=== PATIENT | male | born 1945 | race Caucasian/White ===

== ENCOUNTER 2017-11-14 14:08 | Inpatient (IN) ==
[2017-11-14] MEDS ORDERED: ACETAMINOPHEN 325 MG TABLET PO PRN (15:04)
[2017-11-14] MEDS ORDERED: oxyCODONE HCL 5 MG TABLET PO PRN (15:04)
[2017-11-14] MEDS ORDERED: MAGNESIUM HYDROXIDE 30 ML ORAL.SUSP PO PRN (15:06)
[2017-11-14] MEDS ORDERED: ACETAMINOPHEN (PP) 325MG TABLET (#50) PO PRN (15:06)
[2017-11-14] MEDS ORDERED: DEXTROSE 31 GM ORAL.SUSP PO PRN (15:08)
[2017-11-14] MEDS ORDERED: DEXTROSE 50% 50 ML VIAL IV PRN (15:08)
[2017-11-14] MEDS ORDERED: PIPERACILLIN SODIUM/TAZOBACTAM 2.25 GM VIAL IV SCH (15:15)
[2017-11-14] MEDS: INSULIN LISPRO 1 UNIT/0.01 ML UNIT SQ SCH ×2 (17:15→21:43)
[2017-11-14] MEDS ORDERED: GENTAMICIN SULFATE 80 MG/2 ML VIAL IRR SCH (21:00)
[2017-11-14] MEDS ORDERED: DOCUSATE SODIUM 100 MG CAPSULE PO SCH (21:00)
[2017-11-14] MEDS ORDERED: BACITRACIN 50,000 UNIT VIAL IRR SCH (21:00)
[2017-11-14] MEDS ORDERED: CLINDAMYCIN 600 MG/4 ML VIAL IRR SCH (21:00)
[2017-11-14] MEDS: HEPARIN 5,000 UNIT/ML VIAL SQ SCH (21:43)
[2017-11-14] MEDS: INSULIN GLARGINE, HUMAN 1 UNIT/0.01 ML SQ SCH (21:44)
[2017-11-14] MEDS: 0.9 % SODIUM CHLORIDE 10 ML SYRINGE IV SCH (21:44)
[2017-11-14] MEDS: TAMSULOSIN 0.4 MG CAPSULE PO SCH (21:44)
[2017-11-14] MEDS: GENTAMICIN SULFATE 40 MG, CLINDAMYCIN 300 MG, BACITRACIN 25,000 UNIT in SODIUM CHLORIDE... IRR SCH (21:45)
[2017-11-14] MEDS: PIPERACILLIN SODIUM/TAZOBACTAM 2.25 GM in DEXTROSE 5% IN WATER 50 ML IV SCH (22:14)
[2017-11-15] MEDS: PIPERACILLIN SODIUM/TAZOBACTAM 2.25 GM in DEXTROSE 5% IN WATER 50 ML IV SCH ×3 (05:44→21:49)
[2017-11-15] MEDS: 0.9 % SODIUM CHLORIDE 10 ML SYRINGE IV SCH ×3 (05:44→21:35)
[2017-11-15] MEDS: POLYETHYLENE GLYCOL 3350 17 GM PACKET PO SCH (08:52)
[2017-11-15] MEDS: HEPARIN 5,000 UNIT/ML VIAL SQ SCH (08:52)
[2017-11-15] MEDS: INSULIN LISPRO 1 UNIT/0.01 ML UNIT SQ SCH ×4 (08:53→21:35)
[2017-11-15] MEDS: FUROSEMIDE 40 MG TABLET PO SCH (08:53)
[2017-11-15] MEDS: LACTOBACILLUS 1 CAPSULE PO SCH (08:53)
[2017-11-15] MEDS: LORazepam 1 MG TABLET PO PRN (08:53)
[2017-11-15] MEDS: SIMVASTATIN 20 MG TABLET PO SCH (08:53)
[2017-11-15] MEDS: METOPROLOL SUCCINATE 50 MG TAB.XL.24H PO SCH (08:53)
[2017-11-15] MEDS: GENTAMICIN SULFATE 40 MG, CLINDAMYCIN 300 MG, BACITRACIN 25,000 UNIT in SODIUM CHLORIDE... IRR SCH ×2 (08:53→21:35)
[2017-11-15] MEDS: ALLOPURINOL 300 MG TABLET PO SCH (08:53)
[2017-11-15] MEDS: INSULIN GLARGINE, HUMAN 1 UNIT/0.01 ML SQ SCH ×2 (08:54→21:35)
--- NOTE | 2017-11-15 20:53 | Internal Med History&Physical ---
Medical - H&P: HPI Patient information: Note initiated : 11/15/17 at 8:51 pm Service Date, if different from initiated Date: [] Patient: Jamel Auguste a 72 y/o M admitted on 11/14/17 for Rt Foot Infection, Diabetic Wound . Chief Complaint: [] History of present illness: Mr. Auguste is a 72 year old Male with h/o diabetid foot wound failed outpatient admitted to the hospital intially for management with iv abx and hbot treatment patient was treated with improvement in his symptoms, he still needs IV abx to complete 10 -14 days of iv abx, he needs rehab and continued hbot treatment he is being admitted under swing bed status for same see below the discharge summary from previous visit. Mr. Auguste is a 72 year old M with DM, cardiomyopathy and CKD, who presented for inpatient care of a R foot plantar infected non-healing ulcer. He has been closely followed in the wound clinic by dr Cantrell. States that the foot ulcer developed about 6 - 8 weeks ago, and thinks that the infection started two weeks ago. He was seen in ED on 11/03 and started on Bactrim with instruction to FU with wound clinic. He denies pain, or drainage, fever or chills. History of DB > 20 years. No podiatric care. He has an extensive cardiac history, diagnosed with severe cardiomyopathy and vbaqmmmo-kq-gdthfx MR, S/P pacemaker placement, and hx of urinary retention with subsequent hydronephrosis. Patient is resident of [facility]. R plantar foot ulcer with soft tissue infection and some necrosis, possible osteomyelitis. Treatment as per Dr Hernandez and Dr Page : Vancomycin, Zosyn, local wound care, hyperbaric O2, Today is day 7 of antibiotics, patient will need atleast 10 -14 days of IV antibiotics and then can be switched to oral Augmentin. He has received 6 days of HBOT and will need another 14 treatments of HBOT, his first utilization review will be at day [address] of [address]OT Xray and CT of the food was negative for osteomyelitis he is weak from his treatments and needs ongoing rehab with physical therapy and occupational therapy. The patient is hemodynamically stable and does not need to be under inpatient status. Will be discharged to swing be status. The patient had te on ckd with hydronephrosis on his single kidney, was treated with flomax, his repeat usg showed resolution of his hydronephrosis. Bladder scan done also showed PVR of 76-100 cc. TE and CKD followed by Dr Haines from nephrology while inpatient, creat improved , patient dose of lasix cut from 40 bid to 40 once daily, no e/o edema in the local wound. 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 - Constitutional Constitutional: Absent: chills, fatigue, fever(s) - EENT Eyes: Absent: blurry vision Nose, mouth and throat: Absent: disequilibrium, dizziness - Cardiovascular Cardiovascular: Absent: chest pain, dyspnea on exertion, palpatations - Respiratory Respiratory: Absent: cough, dyspnea on exertion - Gastrointestinal Gastrointestinal: Absent: abdominal pain, nausea, vomiting - Genitourinary Genitourinary: Absent: urinary hesitancy, urinary incontinence, urinary urgency - Neurological Neurological: Absent: disequilibrium, dizziness, focal weakness - Psychiatric Psychiatric: Present: anxiety Medical - H&P: PMH Medical history: Medical History Hyperglycemia due to type 2 diabetes mellitus (Acute) Costalchondritis (Acute) Hyperkalemia (Acute) Hyperkalemia, diminished renal excretion (Acute) Abscess of skin or subcutaneous tissue (Acute) Pleural effusion (Acute) Pulmonary edema (Acute) Pleural effusion due to CHF (congestive heart failure) (Acute) Chronic anemia (Acute) CHF exacerbation (Acute) Urge incontinence (Chronic 09/07/14) Bladder trabeculation (Chronic 12/11/14) Thrombocythemia, essential (Chronic) Splenomegaly (Chronic) Incomplete bladder emptying (Chronic 09/07/14) Hydronephrosis (Chronic) Congestive heart failure (Chronic) Surgical history: Past Surgical History History of knee surgery (Chronic) Pertinent family history: Family History Mother Family history of malignant neoplasm Medical - H&P: Meds Home Medications Medication Instructions Recorded Confirmed Type allopurinol 300 mg tablet 300 mg PO QDAY tab 04/22/15 11/14/17 History Lovastatin 1 tab PO DAILY 05/05/16 11/14/17 History Acetaminophen [Non-Aspirin] 650 mg PO Q6HP PRN 11/08/17 11/14/17 History Ergocalciferol (Vitamin D2) 50,000 unit PO MONTHLY 11/08/17 11/14/17 History [Vitamin D2] Insulin Glargine, Human [Lantus] 22 units SQ BID 11/08/17 11/14/17 History Iron Ag/C/B12/Ca/Suc.acid/Stom 1 each PO BID 11/08/17 11/14/17 History [Multigen Caplet] Magnesium Hydroxide [Milk of 30 ml PO HSP PRN 11/08/17 11/14/17 History Magnesia] Metoprolol Succinate [Toprol Xl] 50 mg PO DAILY 11/08/17 11/14/17 History Polyethylene Glycol 3350 [Miralax] 17 gm PO DAILY 11/08/17 11/14/17 History Saccharomyces Boulardii [Florastor] 250 mg PO DAILY 11/08/17 11/14/17 History Tamsulosin HCl [Flomax] 0.4 mg PO HS 11/08/17 11/14/17 History Bacitracin 25,000 unit IRR BID vial 11/14/17 11/14/17 Rx Clindamycin [Cleocin] 300 mg IRR BID vial 11/14/17 11/14/17 Rx Furosemide [Lasix] 40 mg PO DAILY tablet 11/14/17 11/14/17 Rx Gentamicin Sulfate 40 mg IRR BID vial 11/14/17 11/14/17 Rx Piperacillin Sodium/Tazobactam 2.25 gm IV Q8H vial 11/14/17 11/14/17 Rx [Zosyn] Allergies Allergy/AdvReac Type Severity Reaction Status Date / Time No Known Drug Allergies Allergy Verified 11/08/17 09:23 Medical - H&P: Exam - Constitutional Vitals: Temp Pulse Resp BP Pulse Ox 97.5 F 69 18 142/72 99 11/15/17 19:59 11/15/17 19:59 11/15/17 19:59 11/15/17 19:59 11/15/17 19:59 Exam: GENERAL: The patient is a well-developed, well-nourished in no apparent distress. Is alert and oriented x3. VITAL SIGNS: Reviewed and as noted elsewhere. HEENT: Head is normocephalic and atraumatic. Extraocular muscles are intact. Pupils are equal, round, and reactive to light. Nares appeared normal. Mouth appears any without lesions. Mucous membranes are moist. NECK: Normal to inspection, Supple, No lymphadenopathy or thyromegaly. LUNGS: Air entry equal on both sides, no wheezing, crackles or rhonchi noted. No accessory muscles of respiration HEART: Regular rate and rhythm normal, S1 and S2 heard, no Gallop, S3 or Rub Noted, No Gross murmur heard. ABDOMEN: Soft, nontender, and nondistended. Positive bowel sounds. No hepatosplenomegaly was noted. EXTREMITIES: No cyanosis, clubbing, rash, lesions or edema. NEUROLOGIC: Cranial nerves II through XII are grossly intact. Motor and Sensory System Grossly Intact PSYCHIATRIC: Normal affect, Normal Mood. Appropriate Behavior. SKIN: No ulceration or wounds noted, No jaundice, No rash noted. Foot in dressing see wound care notes for details. Medical - H&P: A/P - Narrative A/P Narrative: A/P Narrative: + R plantar foot ulcer with soft tissue infection and some necrosis, possible osteomyelitis. culver grade 3 wound, no e/o osteomyelitis. Treatment as per Dr Cantrell/ Dr Sandhu : Vancomycin, Zosyn, local wound care, hyperbaric O2 as per them. PICC in place, d8 of IV antibiotics microbiology is neg growth so far. wound cx on 11/03 is strep algactate, his has not grown pseudomonas or mrsa, + Peripheral neuropathy + IDDM Continue insulin home regimen. Adjust as indicated to control BS. glucose ok so far, + HTN Continue metoprolol + Cardiomyopathy and bcqmcouu-tm-luquvq MR with hx of CHF and S/P pacemaker placement (?AICD) Continue home meds Lasix (at reduced dose) continued + Acute on chronic renal failure Cr: 2.6. Was 1.9 2 weeks ago and 1.4 in December 201611/10 Dr Haines consulted creat is stable 1.9 at last check + Hx of urinary retention and hydronephrosis Cont Flomax. Watch closely. repeat usg done was neg for hydronephrosis + MRSA colonization not growing in the wound DVT prophylaxis: arixtra Code status: full Social History - Tobacco smoking status: Former smoker - Alcohol alcohol intake frequency: does not drink
[2017-11-15] MEDS: TAMSULOSIN 0.4 MG CAPSULE PO SCH (21:34)
[2017-11-16] MEDS: PIPERACILLIN SODIUM/TAZOBACTAM 2.25 GM in DEXTROSE 5% IN WATER 50 ML IV SCH ×3 (05:38→21:16)
[2017-11-16] MEDS: 0.9 % SODIUM CHLORIDE 10 ML SYRINGE IV SCH ×3 (05:40→21:16)
[2017-11-16] MEDS: METOPROLOL SUCCINATE 50 MG TAB.XL.24H PO SCH (08:08)
[2017-11-16] MEDS: INSULIN LISPRO 1 UNIT/0.01 ML UNIT SQ SCH ×4 (08:09→21:40)
[2017-11-16] MEDS: FUROSEMIDE 40 MG TABLET PO SCH (08:09)
[2017-11-16] MEDS: LACTOBACILLUS 1 CAPSULE PO SCH (08:09)
[2017-11-16] MEDS: ALLOPURINOL 300 MG TABLET PO SCH (08:09)
[2017-11-16] MEDS: SIMVASTATIN 20 MG TABLET PO SCH (08:09)
[2017-11-16] MEDS: FONDAPARINUX SODIUM 2.5 MG/0.5 ML SYRINGE SQ SCH (08:10)
[2017-11-16] MEDS: INSULIN GLARGINE, HUMAN 1 UNIT/0.01 ML SQ SCH ×2 (08:11→21:40)
[2017-11-16] MEDS: LORazepam 1 MG TABLET PO PRN (09:13)
[2017-11-16] MEDS: POLYETHYLENE GLYCOL 3350 17 GM PACKET PO SCH (16:12)
[2017-11-16] MEDS: GENTAMICIN SULFATE 40 MG, CLINDAMYCIN 300 MG, BACITRACIN 25,000 UNIT in SODIUM CHLORIDE... IRR SCH ×2 (16:53→21:39)
--- NOTE | 2017-11-16 16:56 | General Surgery Consult Note ---
History of Present Illness Patient information: Note initiated : 11/16/17 at 4:50 pm Service Date, if different from initiated Date: [] Patient: Jamel Auguste 72 y/o M admitted on 11/14/17 for Rt Foot Infection, Diabetic Wound . Chief Complaint: [] Consult date: 11/16/17 Requesting physician: Jahaira Connor (Wound Care / [facility]) History of present illness: I saw patient with Norm, checked his wound and discussed his progress with nursing staff and Hospitalist Physician blood donor recruiter Dr. Mason. 72 / M Undergoing HBOT, Physical Therapy, IV antibiotics and Local wound Care for resolving CSSSI [place] 3 DFU RIGHT lateral anterir foot on the plantar aspect of 5 th Metatarsal head region. Patient was admitted to acute MedSurg floor bed, but is now changed to Swing bed status, with ongoing continuation of treatment, Physical Therapy and HBOT Medications and Allergies Home Medications Medication Instructions Recorded Confirmed Type allopurinol 300 mg tablet 300 mg PO QDAY tab 04/22/15 11/14/17 History Lovastatin 1 tab PO DAILY 05/05/16 11/14/17 History Acetaminophen [Non-Aspirin] 650 mg PO Q6HP PRN 11/08/17 11/14/17 History Ergocalciferol (Vitamin D2) 50,000 unit PO MONTHLY 11/08/17 11/14/17 History [Vitamin D2] Insulin Glargine, Human [Lantus] 22 units SQ BID 11/08/17 11/14/17 History Iron Ag/C/B12/Ca/Suc.acid/Stom 1 each PO BID 11/08/17 11/14/17 History [Multigen Caplet] Magnesium Hydroxide [Milk of 30 ml PO HSP PRN 11/08/17 11/14/17 History Magnesia] Metoprolol Succinate [Toprol Xl] 50 mg PO DAILY 11/08/17 11/14/17 History Polyethylene Glycol 3350 [Miralax] 17 gm PO DAILY 11/08/17 11/14/17 History Saccharomyces Boulardii [Florastor] 250 mg PO DAILY 11/08/17 11/14/17 History Tamsulosin HCl [Flomax] 0.4 mg PO HS 11/08/17 11/14/17 History Bacitracin 25,000 unit IRR BID vial 11/14/17 11/14/17 Rx Clindamycin [Cleocin] 300 mg IRR BID vial 11/14/17 11/14/17 Rx Furosemide [Lasix] 40 mg PO DAILY tablet 11/14/17 11/14/17 Rx Gentamicin Sulfate 40 mg IRR BID vial 11/14/17 11/14/17 Rx Piperacillin Sodium/Tazobactam 2.25 gm IV Q8H vial 11/14/17 11/14/17 Rx [Zosyn] Allergies Allergy/AdvReac Type Severity Reaction Status Date / Time No Known Drug Allergies Allergy Verified 11/08/17 09:23 Exam Temp Pulse Resp BP Pulse Ox 97.6 F 69 20 142/86 97 11/16/17 06:44 11/15/17 19:59 11/16/17 06:44 11/16/17 06:44 11/16/17 06:44 - General physical appearance well developed, well nourished, no distress, chronically ill - Eyes PERRL, normal ocular movement, other (Pale conjuctiva with Chronic anemia. Muiltifactorial with out symptoms. Stable. ) - ENT normal pinna, normal mucosa, no congestion, decreased hearing - Head Head exam IM: Present: atraumatic, normal inspection, normocephalic - Neck no masses, no bruits, trachea midline, no venous distension - Cardiovascular Cardiovascular exam IM: Present: normal rate and rhythm - Respiratory normal expansion, normal respiratory effort, clear to percussion, clear to auscultation - Abdomen Abdomen: Present: soft, non tender, bowel sounds - Genitourinary Present: other (Diabetes Nephropathy , Acute on Chronic Renal failure, Creatinine stable.) - Integumentary Present: other (DFU [place] 3 Right foot lateral / plantar under 5 th toe head of metatarsal region. Improving. No odor. Granulations noted. ) - Neurologic Present: other (Diabetes with peripheral neuropathy of right foot, ankle . ) - Psychiatric Present: oriented to time, oriented to person, oriented to place, speech is normal Results - Labs All other labs normal. Assessment and Plan (1) Diabetic foot ulcer Status: Acute Priority: Medium Comment: Patietn on combined treatmetn by Local wound care, HBOT, Iv antibiotcs and Physical Therapy for ambulation. Plan: Continue current treatment and wound care. NO HBOT over week end on Sunday and Friday 11/17 and 11/18/2017. Qualifiers: Diabetic foot ulcer location: toe Diabetes mellitus type: type 2 Laterality: right Non-pressure ulcer stage: with fat layer exposed Qualified Code(s): E11.621 - Type 2 diabetes mellitus with foot ulcer; L97.512 - Non-pressure chronic ulcer of other part of right foot with fat layer exposed
[2017-11-16] MEDS: TAMSULOSIN 0.4 MG CAPSULE PO SCH (21:16)
[2017-11-17] MEDS: PIPERACILLIN SODIUM/TAZOBACTAM 2.25 GM in DEXTROSE 5% IN WATER 50 ML IV SCH ×3 (05:36→21:51)
[2017-11-17] MEDS: 0.9 % SODIUM CHLORIDE 10 ML SYRINGE IV SCH ×3 (05:36→21:51)
[2017-11-17 06:38] LABS: ALT/SGPT 11 U/l (0-40); Albumin 3.3 gm/dL (3.2-5.2); Alkaline Phosphatase 86 U/L (39-117); Bilirubin,Direct 0.2 mg/dL (0.0-0.3); Blood Urea Nitrogen 54 mg/dl (8-23); Gamma Glutamyl Transpeptidase 27 U/L (8-61); Uric Acid 4.2 mg/dL (2.5-8.0)
[2017-11-17] MEDS: INSULIN LISPRO 1 UNIT/0.01 ML UNIT SQ SCH ×4 (07:44→21:51)
[2017-11-17 07:46] LABS: Basophils # (Auto) 0 K/mcL (0.0-0.3); Basophils % (Auto) 0.4 % (0.0-2.0); Eosinophils # (Auto) 0.2 K/mcL (0.0-0.7); Eosinophils % (Auto) 3.2 % (0.0-7.0); Granulocytes % (Auto) 77.8 % (38.0-78.0); Lymphocytes # (Auto) 0.6 K/mcL (1.5-4.8); Mean Cell Volume 83.5 fL (80.0-100.0); Mean Corpuscular HGB Conc 34.5 g/dL (31.0-36.0); Mean Corpuscular Hemoglobin 28.8 pg (26.0-34.0); Monocytes # (Auto) 0.3 K/mcL (0.1-0.9); Monocytes % (Auto) 6.6 % (1.0-12.0); Platelet Count 57 K/mcL (140-440); RBC 2.94 M/mcL (4.50-5.90); Red Cell Distribution Width 17.4 % (11.5-14.5)
[2017-11-17] MEDS: LACTOBACILLUS 1 CAPSULE PO SCH (08:47)
[2017-11-17] MEDS: POLYETHYLENE GLYCOL 3350 17 GM PACKET PO SCH (08:47)
[2017-11-17] MEDS: INSULIN GLARGINE, HUMAN 1 UNIT/0.01 ML SQ SCH ×2 (08:48→21:50)
[2017-11-17] MEDS: ALLOPURINOL 300 MG TABLET PO SCH (08:48)
[2017-11-17] MEDS: SIMVASTATIN 20 MG TABLET PO SCH (08:48)
[2017-11-17] MEDS: METOPROLOL SUCCINATE 50 MG TAB.XL.24H PO SCH (08:48)
[2017-11-17] MEDS: FUROSEMIDE 40 MG TABLET PO SCH (08:48)
[2017-11-17] MEDS ORDERED: MUPIROCIN 2% NASAL OINT 1 GM OINT.TOP NAS SCH (09:00)
[2017-11-17] MEDS: GENTAMICIN SULFATE 40 MG, CLINDAMYCIN 300 MG, BACITRACIN 25,000 UNIT in SODIUM CHLORIDE... IRR SCH (09:53)
[2017-11-17] MEDS: FONDAPARINUX SODIUM 2.5 MG/0.5 ML SYRINGE SQ SCH (09:53)
--- NOTE | 2017-11-17 17:29 | Internal Med Progress Note ---
Medical - PN: Subj Patient information: Note initiated : 11/17/17 at 5:27 pm Service Date, if different from initiated Date: [] Patient: Jamel Auguste a 72 y/o M admitted on 11/14/17 for Rt Foot Infection, Diabetic Wound . Chief Complaint: [] Interval history: Mr. Auguste is a 72 year old Male with h/o diabetid foot wound failed outpatient admitted to the hospital intially for management with iv abx and hbot treatment patient was treated with improvement in his symptoms, he still needs IV abx to complete 10 -14 days of iv abx, he needs rehab and continued hbot treatment he is being admitted under swing bed status for same see below the discharge summary from previous visit. Mr. Auguste is a 72 year old M with DM, cardiomyopathy and CKD, who presented for inpatient care of a R foot plantar infected non-healing ulcer. He has been closely followed in the wound clinic by dr Cantrell. States that the foot ulcer developed about 6 - 8 weeks ago, and thinks that the infection started two weeks ago. He was seen in ED on 11/03 and started on Bactrim with instruction to FU with wound clinic. He denies pain, or drainage, fever or chills. History of DB > 20 years. No podiatric care. He has an extensive cardiac history, diagnosed with severe cardiomyopathy and pvwgvcer-zx-zbhyhq MR, S/P pacemaker placement, and hx of urinary retention with subsequent hydronephrosis. Patient is resident of [facility]. R plantar foot ulcer with soft tissue infection and some necrosis, possible osteomyelitis. Treatment as per Dr Hernandez and Dr Page : Vancomycin, Zosyn, local wound care, hyperbaric O2, Today is day 7 of antibiotics, patient will need atleast 10 -14 days of IV antibiotics and then can be switched to oral Augmentin. He has received 6 days of HBOT and will need another 14 treatments of HBOT, his first utilization review will be at day 10 of HBOT Xray and CT of the food was negative for osteomyelitis he is weak from his treatments and needs ongoing rehab with physical therapy and occupational therapy. The patient is hemodynamically stable and does not need to be under inpatient status. Will be discharged to swing be status. The patient had te on ckd with hydronephrosis on his single kidney, was treated with flomax, his repeat usg showed resolution of his hydronephrosis. Bladder scan done also showed PVR of 76-100 cc. TE and CKD followed by Dr Haines from nephrology while inpatient, creat improved , patient dose of lasix cut from 40 bid to 40 once daily, no e/o edema in the local wound. 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 11/17- patient has been stable. No overnight events. No concerns per staff.no acute changes. Ongoing antibiotics (day 9)/wound care/hyperbaric treatment by Dr. Hernandez and Dr. Sandhu. - Constitutional Vitals: Vital Signs Temp Pulse Resp BP Pulse Ox 97.2 F 65 18 161/70 96 11/17/17 06:40 11/16/17 20:00 11/17/17 06:40 11/17/17 06:40 11/17/17 06:40 Period Temp Pulse Resp BP Sys/Barrow Pulse Ox Last 24 Hr 97.2 F-97.5 F 65 17-18 130-161/70-70 91-96 Intake and Output 11/17/17 11/17/17 11/17/17 05:59 13:59 21:59 Intake Total 200 / 200 1250 / 1250 50 / 50 Output Total 300 / 300 1000 / 1000 201 / 201 Balance -100 / -100 250 / 250 -151 / -151 Intake & Output: Intake & Output 11/17/17 11/17/17 11/17/17 05:59 13:59 21:59 Intake Total 200 / 200 1250 / 1250 50 / 50 Output Total 300 / 300 1000 / 1000 201 / 201 Balance -100 / -100 250 / 250 -151 / -151 Intake: IV 50 / 50 50 / 50 Zosyn 2.25 gm In Dextrose 5% in 50 / 50 50 / 50 Water 50 ml @ 100 mls/hr IV Q8H [facility] Rx#:[id number] Oral 200 / 200 1200 / 1200 0 / 0 Output: Void Amount 300 / 300 1000 / 1000 200 / 200 # of times incontinent of urine Other: Meal Lunch Percent of Meal Consumed 100% # Bowel Movements 1 Exam: resting comfortably nonlabored breathing No anxiety Medical - PN: Obj Da - Labs CBC & Chem 7: 11/17/17 04:25 11/17/17 04:25 Labs: Abnormal Lab Results 11/17/17 11/17/17 04:25 04:25 RBC 2.94 L Hgb 8.5 L Hct 24.5 L RDW 17.4 H Plt Count 57 L Lymph % (Auto) 12.0 L Lymph # (Auto) 0.6 L BUN 54 H Creatinine 1.6 H Meds: Medications Acetaminophen (Tylenol) 650 mg PO Q4-6HP PRN PRN Reason: PAIN/FEVER > 101 Allopurinol (Zylopriim) 300 mg PO QDAY [facility] Last Admin: 11/17/17 08:48 Dose: 300 mg Dextrose (Dextrose 50%) 0 ml IV UD PRN PRN Reason: Hypoglycemia Diagnostic Test (Pha) (Accu-Chek) 1 each FS ACHS [facility] Last Admin: 11/17/17 16:39 Dose: 1 each Ergocalciferol (Drisdol) 50,000 unit PO MONTHLY [facility] Fondaparinux (Arixtra) 2.5 mg SQ DAILY [facility] Last Admin: 11/17/17 09:53 Dose: 2.5 mg Furosemide (Lasix) 40 mg PO DAILY [facility] Last Admin: 11/17/17 08:48 Dose: 40 mg Glucose (Insta-Glucose) 15 gm PO PRN PRN PRN Reason: Hypoglycemia Piperacillin Sod/Tazobactam (Sod 2.25 gm/ Dextrose) 50 mls @ 100 mls/hr IV Q8H [facility] Last Infusion: 11/17/17 14:43 Dose: Infused Gentamicin Sulfate 40 mg/Clindamycin Phosphate 300 mg/Bacitracin 25,000 unit/ Sodium Chloride 503 mls @ 0 mls/hr IRR DAILY [facility] PRN Reason: As Directed Insulin Glargine (Lantus) 22 unit SQ BID [facility] Last Admin: 11/17/17 08:48 Dose: 22 unit Insulin Human Lispro (Humalog) 0 unit SQ ACHS [facility] PRN Reason: Protocol Last Admin: 11/17/17 17:00 Dose: 1 unit Lactobacillus Rhamnosus (Culturelle) 1 cap PO DAILY [facility] Last Admin: 11/17/17 08:47 Dose: 1 cap Lorazepam (Ativan) 1 mg PO DAILYP PRN PRN Reason: ANXIETY/SEDATION Last Admin: 11/16/17 09:13 Dose: 1 mg Magnesium Hydroxide (Milk Of Magnesia) 30 ml PO HSP PRN PRN Reason: Constipation Metoprolol Succinate (Toprol Xl) 50 mg PO DAILY [facility] Last Admin: 11/17/17 08:48 Dose: 50 mg Mupirocin (Bactroban Crm 2%) 0.5 gm TOPICAL BID [facility] Oxycodone HCl (Roxicodone) 5 mg PO Q4HP PRN PRN Reason: PAIN LEVEL 3-6 Polyethylene Glycol (Miralax) 17 gm PO DAILY [facility] Last Admin: 11/17/17 08:47 Dose: 17 gm Simvastatin (Zocor) 20 mg PO DAILY [facility] Last Admin: 11/17/17 08:48 Dose: 20 mg Sodium Chloride (Saline Flush) 10 ml IV Q8 [facility] Last Admin: 11/17/17 13:51 Dose: 10 ml Tamsulosin HCl (Flomax) 0.4 mg PO HS [facility] Last Admin: 11/16/17 21:16 Dose: 0.4 mg Medical - PN: A/P - Time Spent With Patient Total time spent is greater than 50% in coordination of care (as documented) at patient's floor/unit and/or counseling patient: 15 - 24 minutes - Narrative A/P Narrative: + R plantar foot ulcer with soft tissue infection and some necrosis, possible osteomyelitis. culver grade 3 wound, no e/o osteomyelitis. Treatment as per Dr Cantrell/ Dr Sandhu : Vancomycin, Zosyn- day 10, local wound care, hyperbaric O2 per Dr. Hernandez. microbiology is neg growth so far. wound cx on 11/03 is strep algactate + Peripheral neuropathy + IDDM-Continue insulin home regimen. + HTN-Continue metoprolol + Cardiomyopathy and cvwfwgjf-cx-pvvzqr MR with hx of CHF and S/P pacemaker placement (?AICD) Continue home meds Lasix (at reduced dose) continued + Acute on chronic renal failure Cr: 2.6. Was 1.9 2 weeks ago and 1.4 in December 2016/ Dr Haines consulted creat is stable 1.9 at last check + Hx of urinary retention and hydronephrosis Cont Flomax. Watch closely. repeat usg done was neg for hydronephrosis + MRSA colonization not growing in the wound DVT prophylaxis: arixtra Code status: full
--- NOTE | 2017-11-17 17:30 | General Surgery Progress Note ---
Subjective Narrative: Note initiated : 11/17/17 at 5:27 pm Service Date, if different from initiated Date: [] Patient: Jamel Auguste 72 y/o M admitted on 11/14/17 for Rt Foot Infection, Diabetic Wound . Chief Complaint: []patient seen. Progress reviewed with Yoon RN and Kevyn RN I/C. Objective Temp Pulse Resp BP Pulse Ox 97.2 F 65 18 161/70 96 11/17/17 06:40 11/16/17 20:00 11/17/17 06:40 11/17/17 06:40 11/17/17 06:40 AVSS. No changes JM. OOB in chair. Ready to eat dinner. Ambulating with Darco Wedge shoe and FWW. Maintaining balance. Wound stable. Dressing changed. - Additional Data Intake & Output - Last 24 hours: Intake & Output 11/15/17 11/16/17 11/17/17 11/18/17 05:59 05:59 05:59 06:59 Intake Total 1635 / 1635 1950 / 1950 1540 / 1540 1300 / 1300 Output Total 800 / 800 1575 / 1575 951 / 951 1201 / 1201 Balance 835 / 835 375 / 375 589 / 589 99 / 99 Weight 265 lb 266 lb 8 oz 266 lb 8 oz - Labs 11/17/17 04:25 11/17/17 04:25 Diabetes panel 11/17/17 Range/Units 04:25 Sodium 138 (133-145) mmol/L Potassium 4.2 (3.3-5.1) mmol/L Chloride 103 (96-108) mmol/L Carbon Dioxide 24 (22-30) mmol/L BUN 54 H (8-23) mg/dl Creatinine 1.6 H (0.7-1.2) mg/dl Glucose 84 (70-105) mg/dL Calcium 8.8 (8.6-10.4) mg/dl AST 22 (0-37) U/l ALT 11 (0-40) U/l Alkaline Phosphatase 86 (39-117) U/L Total Protein 6.6 (5.9-8.4) gm/dL Albumin 3.3 (3.2-5.2) gm/dL Triglycerides 76 (<150) mg/dl Calcium panel 11/17/17 Range/Units 04:25 Calcium 8.8 (8.6-10.4) mg/dl Phosphorus 3.4 (2.7-4.5) mg/dL Albumin 3.3 (3.2-5.2) gm/dL Pituitary panel 11/17/17 Range/Units 04:25 Sodium 138 (133-145) mmol/L Potassium 4.2 (3.3-5.1) mmol/L Chloride 103 (96-108) mmol/L Carbon Dioxide 24 (22-30) mmol/L BUN 54 H (8-23) mg/dl Creatinine 1.6 H (0.7-1.2) mg/dl Glucose 84 (70-105) mg/dL Calcium 8.8 (8.6-10.4) mg/dl Adrenal panel 11/17/17 Range/Units 04:25 Sodium 138 (133-145) mmol/L Potassium 4.2 (3.3-5.1) mmol/L Chloride 103 (96-108) mmol/L Carbon Dioxide 24 (22-30) mmol/L BUN 54 H (8-23) mg/dl Creatinine 1.6 H (0.7-1.2) mg/dl Glucose 84 (70-105) mg/dL Calcium 8.8 (8.6-10.4) mg/dl Total Bilirubin 1.0 (0.0-1.0) mg/dL AST 22 (0-37) U/l ALT 11 (0-40) U/l Alkaline Phosphatase 86 (39-117) U/L Total Protein 6.6 (5.9-8.4) gm/dL Albumin 3.3 (3.2-5.2) gm/dL Assessment and Plan (1) Diabetic foot ulcer Problem details: Patietn on combined treatmetn by Local wound care, HBOT, Iv antibiotcs and Physical Therapy for ambulation. Plan: Continue current treatment and wound care. NO HBOT over week end on Sunday and Friday 11/17 and 11/18/2017. Status: Acute Current Visit: No - Time Spent With Patient Total time spent is greater than 50% in coordination of care (as documented) at patient's floor/unit and/or counseling patient: Assessment: Progressing well. No HBOT over weekend, Plan: Continue current management. less than 15 minutes
[2017-11-17] MEDS: TAMSULOSIN 0.4 MG CAPSULE PO SCH (21:50)
[2017-11-17] MEDS: MUPIROCIN CRM 2% 15 GM TUBE TOPICAL SCH (22:14)
[2017-11-18] MEDS: PIPERACILLIN SODIUM/TAZOBACTAM 2.25 GM in DEXTROSE 5% IN WATER 50 ML IV SCH ×3 (05:51→21:40)
[2017-11-18] MEDS: 0.9 % SODIUM CHLORIDE 10 ML SYRINGE IV SCH ×3 (05:51→21:41)
[2017-11-18] MEDS: INSULIN LISPRO 1 UNIT/0.01 ML UNIT SQ SCH ×4 (07:23→21:40)
[2017-11-18] MEDS: FONDAPARINUX SODIUM 2.5 MG/0.5 ML SYRINGE SQ SCH (08:26)
[2017-11-18] MEDS: ALLOPURINOL 300 MG TABLET PO SCH (08:26)
[2017-11-18] MEDS: INSULIN GLARGINE, HUMAN 1 UNIT/0.01 ML SQ SCH ×2 (08:26→21:41)
[2017-11-18] MEDS: FUROSEMIDE 40 MG TABLET PO SCH (08:27)
[2017-11-18] MEDS: SIMVASTATIN 20 MG TABLET PO SCH (08:27)
[2017-11-18] MEDS: LACTOBACILLUS 1 CAPSULE PO SCH (08:27)
[2017-11-18] MEDS: POLYETHYLENE GLYCOL 3350 17 GM PACKET PO SCH (08:27)
[2017-11-18] MEDS: METOPROLOL SUCCINATE 50 MG TAB.XL.24H PO SCH (08:27)
[2017-11-18] MEDS: MUPIROCIN OINT 2% 22GM TOPICAL SCH ×2 (10:09→21:40)
[2017-11-18] MEDS: GENTAMICIN SULFATE 40 MG, CLINDAMYCIN 300 MG, BACITRACIN 25,000 UNIT in SODIUM CHLORIDE... IRR SCH (10:09)
[2017-11-18] MEDS: MUPIROCIN CRM 2% 15 GM TUBE TOPICAL SCH (10:59)
[2017-11-18] MEDS: TAMSULOSIN 0.4 MG CAPSULE PO SCH (21:40)
[2017-11-19] MEDS: PIPERACILLIN SODIUM/TAZOBACTAM 2.25 GM in DEXTROSE 5% IN WATER 50 ML IV SCH ×3 (06:05→21:12)
[2017-11-19] MEDS: 0.9 % SODIUM CHLORIDE 10 ML SYRINGE IV SCH ×3 (06:06→21:13)
[2017-11-19] MEDS: INSULIN LISPRO 1 UNIT/0.01 ML UNIT SQ SCH ×4 (07:45→21:13)
[2017-11-19 09:28] LABS: Blood Urea Nitrogen 66 mg/dl (8-23)
[2017-11-19] MEDS: METOPROLOL SUCCINATE 50 MG TAB.XL.24H PO SCH (09:48)
[2017-11-19] MEDS: ALLOPURINOL 300 MG TABLET PO SCH (09:49)
[2017-11-19] MEDS: FUROSEMIDE 40 MG TABLET PO SCH (09:50)
[2017-11-19] MEDS: LACTOBACILLUS 1 CAPSULE PO SCH (09:50)
[2017-11-19] MEDS: SIMVASTATIN 20 MG TABLET PO SCH (09:50)
[2017-11-19] MEDS: MUPIROCIN OINT 2% 22GM TOPICAL SCH ×2 (09:51→21:12)
[2017-11-19] MEDS: POLYETHYLENE GLYCOL 3350 17 GM PACKET PO SCH (09:52)
[2017-11-19] MEDS: LORazepam 1 MG TABLET PO PRN (10:13)
[2017-11-19] MEDS: INSULIN GLARGINE, HUMAN 1 UNIT/0.01 ML SQ SCH ×2 (12:55→21:13)
--- NOTE | 2017-11-19 15:31 | General Surgery Progress Note ---
Subjective Patient reports: feels better, other (Worried about his 's health and rent being charged for his stay at [facility] whilst he is still in hospital. He does NOT want to continue with HBOT. ) Narrative: Note initiated : 11/19/17 at 3:23 pm Service Date, if different from initiated Date: [] Patient: Jamel Auguste 72 y/o M admitted on 11/14/17 for Rt Foot Infection, Diabetic Wound . Chief Complaint: [] Objective Temp Pulse Resp BP Pulse Ox 97.8 F 69 20 150/78 98 11/19/17 12:51 11/19/17 12:51 11/19/17 12:51 11/19/17 12:51 11/19/17 12:51 I saw Mr. Auguste along with nurse on Med Surg floor and with [employer] IP wound care nurse. Examined his RIGHT plantar DFU wound. There are no changes in his JM. He is progressing well with his Physical Therapy and compliant with limited ambulation with Darco Off Loading shoe and FWW, Plantar DFU under his RIGHT 5 th toe MPJ is NOW covered with soft tissue and wound margin has a soft callous. This wound is responding to LOCAL wound care, IV antibiotics and HBOT treatments that he has had thus far. However, at this point patient does NOT want to continue with HBOT. He wants to be discharged and be with his , who had a breast biopsy. He is very concerned about the rent charged for his stay at the [facility], whilst he continues to be a patient at [facility], Swing Bed Status. Today, we made changes to his wound care and dressings. These have to be changed q 48 hrly. - Additional Data Intake & Output - Last 24 hours: Intake & Output 11/17/17 11/18/17 11/19/17 11/20/17 04:59 05:59 05:59 05:59 Intake Total 2110 / 2110 650 / 650 Output Total 1525 / 1525 300 / 300 Balance 585 / 585 350 / 350 Weight 266 lb 8 oz - Labs 11/17/17 04:25 11/19/17 08:28 Diabetes panel 11/19/17 Range/Units 08:28 Sodium 139 (133-145) mmol/L Potassium 4.1 (3.3-5.1) mmol/L Chloride 101 (96-108) mmol/L Carbon Dioxide 25 (22-30) mmol/L BUN 66 H (8-23) mg/dl Creatinine 1.6 H (0.7-1.2) mg/dl Glucose 74 (70-105) mg/dL Calcium 9.4 (8.6-10.4) mg/dl Calcium panel 11/19/17 Range/Units 08:28 Calcium 9.4 (8.6-10.4) mg/dl Pituitary panel 11/19/17 Range/Units 08:28 Sodium 139 (133-145) mmol/L Potassium 4.1 (3.3-5.1) mmol/L Chloride 101 (96-108) mmol/L Carbon Dioxide 25 (22-30) mmol/L BUN 66 H (8-23) mg/dl Creatinine 1.6 H (0.7-1.2) mg/dl Glucose 74 (70-105) mg/dL Calcium 9.4 (8.6-10.4) mg/dl Adrenal panel 11/19/17 Range/Units 08:28 Sodium 139 (133-145) mmol/L Potassium 4.1 (3.3-5.1) mmol/L Chloride 101 (96-108) mmol/L Carbon Dioxide 25 (22-30) mmol/L BUN 66 H (8-23) mg/dl Creatinine 1.6 H (0.7-1.2) mg/dl Glucose 74 (70-105) mg/dL Calcium 9.4 (8.6-10.4) mg/dl Assessment and Plan (1) Diabetic foot ulcer Problem details: Patietn on combined treatmetn by Local wound care, HBOT, Iv antibiotcs and Physical Therapy for ambulation. Plan: Continue current treatment and wound care. NO HBOT over week end on Sunday and Friday 11/17 and 11/18/2017. Status: Chronic Assessment and plan: Assessment: Right foot DFU plantar under 5 th toe MPJ IS responding to conservative wound care. Acute inflammatory changes has resolved. Patient NOW needs continuation of his on going wound care and may be discharged home or [facility] on PO antibiotics. He will have to continue out patient wound care clinic follow up. We will refer him to [facility], [place], [place]. Plan: [employer] to initiate D/C planning. Current Visit: No - Time Spent With Patient Total time spent is greater than 50% in coordination of care (as documented) at patient's floor/unit and/or counseling patient: 15 - 24 minutes
--- NOTE | 2017-11-19 16:58 | Nephrology Progress Note ---
Subjective Patient information: Note initiated : 11/19/17 at 4:52 pm Service Date, if different from initiated Date: [] Patient: Jamel Auguste 72 y/o M admitted on 11/14/17 for Rt Foot Infection, Diabetic Wound . Chief Complaint: [] Principal diagnosis: right LE cellulitis Interval history: LE wound healing.stable per wound care patient denies any new issues denies SOB, CP no worsening edema non oliguric with some improvement in renal function denies any urinary symptoms Pertinent ROS: as above Objective - Vital Signs Vital signs: Vital Signs Temp Pulse Resp BP Pulse Ox 11/19/17 12:51 97.8 F 69 20 150/78 98 11/19/17 12:00 97.8 F 69 20 150/78 98 11/19/17 08:00 96.6 F L 69 24 H 148/78 98 11/18/17 19:56 97.2 F 69 22 136/64 98 Intake and Output 11/19/17 11/19/17 11/19/17 05:59 13:59 21:59 Intake Total 690 / 690 650 / 650 Output Total 725 / 725 300 / 300 Balance -35 / -35 350 / 350 Intake: IV 50 / 50 Zosyn 2.25 gm In Dextrose 5% in 50 / 50 Water 50 ml @ 100 mls/hr IV Q8H [facility] Rx#:[id number] Oral 640 / 640 650 / 650 Output: Void Amount 725 / 725 300 / 300 Other: Meal jello & fruit cup Breakfast Percent of Meal Consumed 100% 100% Feeding Ability Independent Independent # Voids 1 1 Intake & Output: Intake & Output 11/19/17 11/19/17 11/19/17 05:59 13:59 21:59 Intake Total 690 / 690 650 / 650 Output Total 725 / 725 300 / 300 Balance -35 / -35 350 / 350 Intake: IV 50 / 50 Zosyn 2.25 gm In Dextrose 5% in 50 / 50 Water 50 ml @ 100 mls/hr IV Q8H [facility] Rx#:[id number] Oral 640 / 640 650 / 650 Output: Void Amount 725 / 725 300 / 300 Other: Meal jello & fruit cup Breakfast Percent of Meal Consumed 100% 100% Feeding Ability Independent Independent # Voids 1 1 - General Appearance General appearance: appears started age EENT: mucous membranes moist Neck: no JVD Respiratory: clear Cardiology: no edema, normal S1, normal S2 Gastrointestinal: no tenderness, no guarding Integumentary: warm and dry Neurologic: alert and oriented x3 Musculoskeletal: no cyanosis, no clubbing Psychiatric: mood/affect appropriate - Lab 11/17/17 04:25 11/19/17 08:28 Most recent lab results Calcium 9.4 mg/dl (8.6-10.4) 11/19/17 08:28 Phosphorus 3.4 mg/dL (2.7-4.5) 11/17/17 04:25 Magnesium 2.0 mg/dL (1.6-2.5) 11/17/17 04:25 Assessment and Plan (1) Acute on chronic renal failure s.creatinine is down to 1.6 BUN is in 60's no e/o fluid excess he has solitary kidney with issues of bladder outlet obstruction and mild hydropnehosis on renal US he will need urology follow up on discharge would discharge him on only 40mg of oral lasix and titrate up if needed given h/ o CHF ensure low sodium diet continue other meds anemia: work up negative ongoing infection/inflammation/ckd contributing will follow and initiate aranesp if needed will follow in 2-3 weeks on discharge Status: Acute
[2017-11-19] MEDS: FONDAPARINUX SODIUM 2.5 MG/0.5 ML SYRINGE SQ SCH (18:59)
[2017-11-19] MEDS: TAMSULOSIN 0.4 MG CAPSULE PO SCH (21:13)
--- NOTE | 2017-11-19 21:46 | Internal Med Progress Note ---
Medical - PN: Subj Patient information: Note initiated : 11/19/17 at 9:45 pm Service Date, if different from initiated Date: [] Patient: Jamel Auguste a 72 y/o M admitted on 11/14/17 for Rt Foot Infection, Diabetic Wound . Chief Complaint: [] Interval history: Mr. Auguste is a 72 year old Male with h/o diabetid foot wound failed outpatient admitted to the hospital intially for management with iv abx and hbot treatment patient was treated with improvement in his symptoms, he still needs IV abx to complete 10 -14 days of iv abx, he needs rehab and continued hbot treatment he is being admitted under swing bed status for same see below the discharge summary from previous visit. Mr. Auguste is a 72 year old M with DM, cardiomyopathy and CKD, who presented for inpatient care of a R foot plantar infected non-healing ulcer. He has been closely followed in the wound clinic by dr Cantrell. States that the foot ulcer developed about 6 - 8 weeks ago, and thinks that the infection started two weeks ago. He was seen in ED on 11/03 and started on Bactrim with instruction to FU with wound clinic. He denies pain, or drainage, fever or chills. History of DB > 20 years. No podiatric care. He has an extensive cardiac history, diagnosed with severe cardiomyopathy and mskurckx-gt-[id number] MR, S/P pacemaker placement, and hx of urinary retention with subsequent hydronephrosis. Patient is resident of [facility]. R plantar foot ulcer with soft tissue infection and some necrosis, possible osteomyelitis. Treatment as per Dr Hernandez and Dr Page : Vancomycin, Zosyn, local wound care, hyperbaric O2, Today is day 7 of antibiotics, patient will need atleast 10 -14 days of IV antibiotics and then can be switched to oral Augmentin. He has received 6 days of HBOT and will need another 14 treatments of HBOT, his first utilization review will be at day [address] of [address] Xray and CT of the food was negative for osteomyelitis he is weak from his treatments and needs ongoing rehab with physical therapy and occupational therapy. The patient is hemodynamically stable and does not need to be under inpatient status. Will be discharged to swing be status. The patient had te on ckd with hydronephrosis on his single kidney, was treated with flomax, his repeat usg showed resolution of his hydronephrosis. Bladder scan done also showed PVR of 76-100 cc. TE and CKD followed by Dr Haines from nephrology while inpatient, creat improved , patient dose of lasix cut from 40 bid to 40 once daily, no e/o edema in the local wound. 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 11/17- patient has been stable. No overnight events. No concerns per staff.no acute changes. Ongoing antibiotics (day 9)/wound care/hyperbaric treatment by Dr. Hernandez and Dr. Sandhu. 11/19-patient refusing further hyperbaric treatments. Case discussed with wound care. Possible discharge in 24 hours to SNF. On IV antibiotic coverage will be de-escalate to oral antibiotics. No overnight fever chills. No concerns per staff. - Constitutional Vitals: Vital Signs Temp Pulse Resp BP Pulse Ox 97.6 F 70 24 H 137/68 100 11/19/17 19:55 11/19/17 19:55 11/19/17 19:55 11/19/17 19:55 11/19/17 19:55 Period Temp Pulse Resp BP Sys/Barrow Pulse Ox Last 24 Hr 96.6 F-97.8 F 69-70 20-24 137-150/68-78 98-100 Intake and Output 11/19/17 11/19/17 11/19/17 05:59 13:59 21:59 Intake Total 690 / 690 700 / 700 370 / 370 Output Total 725 / 725 300 / 300 900 / 900 Balance -35 / -35 400 / 400 -530 / -530 Intake & Output: Intake & Output 11/19/17 11/19/17 11/19/17 05:59 13:59 21:59 Intake Total 690 / 690 700 / 700 370 / 370 Output Total 725 / 725 300 / 300 900 / 900 Balance -35 / -35 400 / 400 -530 / -530 Intake: IV 50 / 50 50 / 50 50 / 50 Zosyn 2.25 gm In Dextrose 5% in 50 / 50 50 / 50 50 / 50 Water 50 ml @ 100 mls/hr IV Q8H [facility] Rx#:[id number] Oral 640 / 640 650 / 650 320 / 320 Output: Void Amount 725 / 725 300 / 300 900 / 900 Other: Meal jello & fruit cup Breakfast Dinner Percent of Meal Consumed 100% 100% 100% Feeding Ability Independent Independent # Voids 1 1 General appearance: cooperative, no acute distress Exam: No anxiety alert oriented nonlabored breathing Resting comfortably Medical - PN: Obj Da - Labs CBC & Chem 7: 11/17/17 04:25 11/19/17 08:28 Labs: Abnormal Lab Results 11/19/17 11/17/17 11/17/17 08:28 04:25 04:25 RBC 2.94 L Hgb 8.5 L Hct 24.5 L RDW 17.4 H Plt Count 57 L Lymph % (Auto) 12.0 L Lymph # (Auto) 0.6 L BUN 66 H 54 H Creatinine 1.6 H 1.6 H Meds: Medications Acetaminophen (Tylenol) 650 mg PO Q4-6HP PRN PRN Reason: PAIN/FEVER > 101 Allopurinol (Zylopriim) 300 mg PO QDAY [facility] Last Admin: 11/19/17 09:49 Dose: 300 mg Dextrose (Dextrose 50%) 0 ml IV UD PRN PRN Reason: Hypoglycemia Diagnostic Test (Pha) (Accu-Chek) 1 each FS ACHS [facility] Last Admin: 11/19/17 21:13 Dose: 1 each Ergocalciferol (Drisdol) 50,000 unit PO MONTHLY [facility] Fondaparinux (Arixtra) 2.5 mg SQ DAILY [facility] Last Admin: 11/19/17 18:59 Dose: Not Given Furosemide (Lasix) 40 mg PO DAILY [facility] Last Admin: 11/19/17 09:50 Dose: 40 mg Glucose (Insta-Glucose) 15 gm PO PRN PRN PRN Reason: Hypoglycemia Piperacillin Sod/Tazobactam (Sod 2.25 gm/ Dextrose) 50 mls @ 100 mls/hr IV Q8H [facility] Last Admin: 11/19/17 21:12 Dose: 100 mls/hr Insulin Glargine (Lantus) 22 unit SQ BID [facility] Last Admin: 11/19/17 21:13 Dose: 22 unit Insulin Human Lispro (Humalog) 0 unit SQ ACHS [facility] PRN Reason: Protocol Last Admin: 11/19/17 21:13 Dose: 1 unit Lactobacillus Rhamnosus (Culturelle) 1 cap PO DAILY [facility] Last Admin: 11/19/17 09:50 Dose: 1 cap Lorazepam (Ativan) 1 mg PO DAILYP PRN PRN Reason: ANXIETY/SEDATION Last Admin: 11/19/17 10:13 Dose: 1 mg Magnesium Hydroxide (Milk Of Magnesia) 30 ml PO HSP PRN PRN Reason: Constipation Metoprolol Succinate (Toprol Xl) 50 mg PO DAILY [facility] Last Admin: 11/19/17 09:48 Dose: 50 mg Mupirocin (Bactroban Oint 2%) 1 dose TOPICAL BID [facility] Last Admin: 11/19/17 21:12 Dose: 1 dose Oxycodone HCl (Roxicodone) 5 mg PO Q4HP PRN PRN Reason: PAIN LEVEL 3-6 Polyethylene Glycol (Miralax) 17 gm PO DAILY [facility] Last Admin: 11/19/17 09:52 Dose: 17 gm Simvastatin (Zocor) 20 mg PO DAILY [facility] Last Admin: 11/19/17 09:50 Dose: 20 mg Sodium Chloride (Saline Flush) 10 ml IV Q8 [facility] Last Admin: 11/19/17 21:13 Dose: 10 ml Tamsulosin HCl (Flomax) 0.4 mg PO HS [facility] Last Admin: 11/19/17 21:13 Dose: 0.4 mg Medical - PN: A/P - Time Spent With Patient Total time spent is greater than 50% in coordination of care (as documented) at patient's floor/unit and/or counseling patient: 15 - 24 minutes - Narrative A/P Narrative: + R plantar foot ulcer with soft tissue infection with necrosis- culver grade 3 wound, no e/o osteomyelitis. managed as per Dr Cantrell/ Dr Sandhu : Vancomycin, Zosyn- day 12, local wound care, hyperbaric O2 per Dr. Hernandez however patient refusingfurther treatments. microbiology is neg growth so far. wound cx on 11/03 is strep algactate + Peripheral neuropathy + IDDM-Continue insulin home basal insulin 22 twice a day. + HTN-Continue metoprolol + Cardiomyopathy and zitooxrl-zl-elitop MR with hx of CHF and S/P pacemaker placement (?AICD) Continue home meds Lasix (at reduced dose) continued + Acute on chronic renal failure-creatinine down to 1.6. nephrology on board + Hx of urinary retention and hydronephrosis Cont Flomax. Watch closely. repeat usg done was neg for hydronephrosis DVT prophylaxis: arixtra Code status: full
[2017-11-19] MEDS: GENTAMICIN SULFATE 40 MG, CLINDAMYCIN 300 MG, BACITRACIN 25,000 UNIT in SODIUM CHLORIDE... IRR SCH (23:39)
[2017-11-20] MEDS: 0.9 % SODIUM CHLORIDE 10 ML SYRINGE IV SCH (06:03)
[2017-11-20] MEDS: PIPERACILLIN SODIUM/TAZOBACTAM 2.25 GM in DEXTROSE 5% IN WATER 50 ML IV SCH (06:03)
[2017-11-20] MEDS: INSULIN LISPRO 1 UNIT/0.01 ML UNIT SQ SCH ×2 (06:56→11:57)
[2017-11-20] MEDS: MUPIROCIN OINT 2% 22GM TOPICAL SCH (08:52)
[2017-11-20] MEDS: INSULIN GLARGINE, HUMAN 1 UNIT/0.01 ML SQ SCH (08:52)
[2017-11-20] MEDS: FONDAPARINUX SODIUM 2.5 MG/0.5 ML SYRINGE SQ SCH (08:52)
[2017-11-20] MEDS: POLYETHYLENE GLYCOL 3350 17 GM PACKET PO SCH (08:52)
[2017-11-20] MEDS: FUROSEMIDE 40 MG TABLET PO SCH (08:53)
[2017-11-20] MEDS: SIMVASTATIN 20 MG TABLET PO SCH (08:53)
[2017-11-20] MEDS: ALLOPURINOL 300 MG TABLET PO SCH (08:53)
[2017-11-20] MEDS: LACTOBACILLUS 1 CAPSULE PO SCH (08:53)
[2017-11-20] MEDS: METOPROLOL SUCCINATE 50 MG TAB.XL.24H PO SCH (08:53)
--- NOTE | 2017-11-20 11:07 | Discharge Summary ---
Medical - DS: Prov Patient information: Note initiated : 11/20/17 at 11:05 am Service Date, if different from initiated Date: [] Patient: Jamel Auguste 72 y/o M admitted on 11/14/17 for Rt Foot Infection, Diabetic Wound . Chief Complaint: [] Date of admission: 11/14/17 14:08 Discharge date: 11/20/17 Primary care physician: Celine Pavon Consults: 11/16/17 16:48 Consult to Physician [CONS] Routine Comment: Consulting Provider: Chris Hernandez Reason For Exam: Physician to Consult Medical - DS: Meds - Discharge Medications Prescriptions: Amoxicillin/Potassium Clav [Augmentin] 875 mg PO Q12H #20 tab Active and Home Medications: Home Medications allopurinol 300 mg tablet 300 mg PO QDAY tab 04/22/15 [History Confirmed Last Taken 11/14/17 08:00] Lovastatin 1 tab PO DAILY 05/05/16 [History Confirmed 11/14/17 Last Taken 16:10] Acetaminophen [Non-Aspirin] 650 mg PO Q6HP PRN 11/08/17 [History Confirmed 11/14 Last Taken 11/03/17 19:30] Ergocalciferol (Vitamin D2) [Vitamin D2] 50,000 unit PO MONTHLY 11/08/17 [ History Confirmed 11/14/17 Last Taken 11/08/17 07:22] Insulin Glargine, Human [Lantus] 22 units SQ BID 11/08/17 [History Confirmed 03/27 Last Taken 11/13/17 21:10] Magnesium Hydroxide [Milk of Magnesia] 30 ml PO HSP PRN 11/08/17 [History Confirmed 11/14/17 Last Taken 09/21/17 19:28] Metoprolol Succinate [Toprol Xl] 50 mg PO DAILY 11/08/17 [History Confirmed 03/27 Last Taken 11/14/17 09:21] Polyethylene Glycol 3350 [Miralax] 17 gm PO DAILY 11/08/17 [History Confirmed Last Taken 11/14/17 09:21] Saccharomyces Boulardii [Florastor] 250 mg PO DAILY 11/08/17 [History Confirmed 11/14/17 Last Taken 11/08/17 07:22] Tamsulosin HCl [Flomax] 0.4 mg PO HS 11/08/17 [History Confirmed 11/14/17 Last Taken 11/14/17 09:21] Bacitracin 25,000 unit IRR BID vial 11/14/17 [Rx Confirmed 11/14/17 Last Taken Unknown] Clindamycin [Cleocin] 300 mg IRR BID vial 11/14/17 [Rx Confirmed 11/14/17 Last Taken Unknown] Furosemide [Lasix] 40 mg PO DAILY tablet 11/14/17 [Rx Confirmed 11/14/17 Last Taken 11/14/17 08:00] Gentamicin Sulfate 40 mg IRR BID vial 11/14/17 [Rx Confirmed 11/14/17 Last Taken Unknown] Amoxicillin/Potassium Clav [Augmentin] 875 mg PO Q12H #20 tab 11/20/17 [Rx Last Taken Unknown] Medical - DS: Hosp Hospital course: DISCHARGE DIAGNOSIS + R plantar foot ulcer with soft tissue infection with necrosis- culver grade 3 wound, no e/o osteomyelitis. managed as per Dr Cantrell/ Dr Sandhu : Vancomycin, Zosyn- day 12, local wound care, hyperbaric O2 per Dr. Hernandez however patient refusingfurther treatments. microbiology is neg growth so far. wound cx on 11/03 is strep algactate + Peripheral neuropathy + IDDM-Continue insulin home basal insulin 22 twice a day. + HTN-Continue metoprolol + Cardiomyopathy and gktoybtq-ob-mqjsif MR with hx of CHF and S/P pacemaker placement (?AICD)-clinically well compensated + Acute on chronic renal failure-creatinine down to 1.6. managed by nephrology + Hx of urinary retention and hydronephrosis Cont Flomax. Watch closely. repeat usg done was neg for hydronephrosis BRIEF HOSPITAL COURSE Mr. Auguste is a 72 year old M with DM, cardiomyopathy and CKD, who presented for inpatient care of a R foot plantar infected non-healing ulcer. He has been closely followed in the wound clinic by dr Cantrell. States that the foot ulcer developed about 6 - 8 weeks ago, and thinks that the infection started two weeks ago. He was seen in ED on 11/03 and started on Bactrim with instruction to FU with wound clinic. He denies pain, or drainage, fever or chills. History of DB > 20 years. No podiatric care. He has an extensive cardiac history, diagnosed with severe cardiomyopathy and ndytvhab-gq-grvcbf MR, S/P pacemaker placement, and hx of urinary retention with subsequent hydronephrosis. Patient is resident of [facility]. R plantar foot ulcer with soft tissue infection and some necrosis, possible osteomyelitis. Treatment as per Dr Hernandez and Dr aPge : Vancomycin, Zosyn, local wound care, hyperbaric O2, Today is day 7 of antibiotics, patient will need atleast 10 -14 days of IV antibiotics and then can be switched to oral Augmentin. He has received 6 days of HBOT and will need another 14 treatments of HBOT, his first utilization review will be at day 10 of HBOT Xray and CT of the food was negative for osteomyelitis he is weak from his treatments and needs ongoing rehab with physical therapy and occupational therapy. The patient is hemodynamically stable and does not need to be under inpatient status. Will be discharged to swing be status. The patient had te on ckd with hydronephrosis on his single kidney, was treated with flomax, his repeat usg showed resolution of his hydronephrosis. Bladder scan done also showed PVR of 76-100 cc. TE and CKD followed by Dr Haines from nephrology while inpatient, creat improved , patient dose of lasix cut from 40 bid to 40 once daily, no e/o edema in the local wound. 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 11/17- patient has been stable. No overnight events. No concerns per staff.no acute changes. Ongoing antibiotics (day 9)/wound care/hyperbaric treatment by Dr. Hernandez and Dr. Sandhu. 11/19-patient refusing further hyperbaric treatments. Case discussed with wound care. Possible discharge in 24 hours to SNF. On IV antibiotic coverage will be de-escalate to oral antibiotics. No overnight fever chills. No concerns per staff. patient was continued on hyperbaric oxygen treatment along with antibiotics with significant improvement in room. He was continually followed up by nephrology during hospitalization his creatinine down to 1.6. 11/20-patient is being discharged in stable state as patient refusing further hyperbaric oxygen treatments. He is cleared by wound care for discharge. Patient has been evaluated by nephrology and recommends outpatient urology follow-up/continuing 40 mg of Lasix daily. He'll continue additional 10 days of oral antibiotics. He'll continue wound care as instructed by Dr. Hernandez Discharge diagnosis: . - Time Spent with Patient Total time spent providing and/or coordinating discharge services: Greater than 30 minutes Medical - DS: Exam - Constitutional Vitals: Vital Signs Temp Pulse Resp BP Pulse Ox 11/20/17 07:13 96.9 F L 61 24 H 148/73 97 11/20/17 00:25 97.9 F 71 24 H 161/85 99 11/20/17 00:15 71 98 11/19/17 19:55 97.6 F 70 24 H 137/68 100 11/19/17 12:51 97.8 F 69 20 150/78 98 11/19/17 12:00 97.8 F 69 20 150/78 98 Intake and Output 11/19/17 11/20/17 11/20/17 21:59 05:59 13:59 Intake Total 420 / 420 150 / 150 100 / 100 Output Total 900 / 900 400 / 400 1380 / 1380 Balance -480 / -480 -250 / -250 -1280 / -1280 Intake: IV 100 / 100 Zosyn 2.25 gm In Dextrose 5% in 100 / 100 Water 50 ml @ 100 mls/hr IV Q8H [facility] Rx#:[id number] Oral 320 / 320 150 / 150 100 / 100 Output: Void Amount 900 / 900 400 / 400 1380 / 1380 Other: Meal Dinner Breakfast Percent of Meal Consumed 100% Stool Size Moderate Stool Color Brown Stool Consistency Soft # Voids 1 1 1 Weight 261 lb 8 oz Medical - DS: A/P - Patient/Caregiver Discharge Instructions Activity: as per physical therapy, increase activity as tolerated Diet: Renal/Consistent Carbs Additional Instructions: urology follow up on discharge follow-up wound care per dr Hernandez and continue wound care instructions as per Dr. Hernandez continue 40mg of oral lasix and uptitration if needed at [facility] low sodium diet Follow-up PCP in 5 days follow-up nephrology in 1 week I recommend [facility] physician to check CBC BMP UA as a posthospital follow-up in 1 week. Antibiotics for 10 days oral Augmentin Please schedule pulmonary function test as outpatient in 3 weeks Continue aggressive bowel regimen to prevent constipation Continue fall precautions daily weights measurements and take additional 40 mg Lasix for 3 days if weight gain over 4 pounds over baseline or worsening shortness of breath and call primary care physician if inadequate response to Lasix Continue aggressive PT OT evaluation and treatment at SNF along with wound care. ST eval and treatment if indicated All meals on chair sitting upright at 90 degrees to prevent aspiration Return to ER if worsening fever chills shortness of breath, diarrhea, bleeding Review risk and side effect profile of medications including antibiotics. Side effect may include mild to severe reaction including rash, diarrhea, cdiff and even which can be prevented by close follow-up with PCP and monitoring for side effects Continue diet and activity as advised Discussed importance of medication adherence Please review medication list with patient prior to discharge Please schedule follow-up with PCP/Providers prior to discharge and provide printouts Portions of this chart may have been created with [employer] voice recognition software. Occasional wrong-word or ?sound-like? substitutions may have occurred due to the inherent limitations of voice recognition software. Please read the chart carefully and recognize, using context, where the substitutions have occurred. CC- PCP Prescriptions: Amoxicillin/Potassium Clav [Augmentin] 875 mg PO Q12H #20 tab - Follow up Plan Follow up with: Cynthia Haines MD [Physician] - 12/11/17 9:30 am Disposition: Xfer SNF Prognosis: Fair Rehab Potential: Fair I certify that the patient requires SNF services: Yes Overall status at discharge: patient is progressing back to baseline
--- NOTE | 2017-11-20 11:59 | General Surgery Progress Note ---
Subjective Patient reports: other (No interval changes. Being discharged today. ) Narrative: Note initiated : 11/20/17 at 11:53 am Service Date, if different from initiated Date: [] Patient: Jamel Auguste 72 y/o M admitted on 11/14/17 for Rt Foot Infection, Diabetic Wound . Chief Complaint: [] Objective Temp Pulse Resp BP Pulse Ox 97.6 F 69 12 140/80 99 11/20/17 11:14 11/20/17 11:14 11/20/17 11:14 11/20/17 11:14 11/20/17 11:14 AVSS. No changes JM. On going wound care and PO antibiotics as ordered at discharge. Reviewed notes / medications at discharge and discussed with DIRK Camara I/C - Additional Data Intake & Output - Last 24 hours: Intake & Output 11/18/17 11/19/17 11/20/17 11/21/17 05:59 05:59 05:59 05:59 Intake Total 2110 / 2110 1270 / 1270 100 / 100 Output Total 1525 / 1525 1600 / 1600 1380 / 1380 Balance 585 / 585 -330 / -330 -1280 / -1280 Weight 266 lb 8 oz 261 lb 8 oz - Labs 11/17/17 04:25 11/19/17 08:28 Assessment and Plan (1) Diabetic foot ulcer Problem details: Patietn on combined treatmetn by Local wound care, HBOT, Iv antibiotcs and Physical Therapy for ambulation. Plan: Continue current treatment and wound care. NO HBOT over week end on Sunday and Friday 11/17 and 11/18/2017. Status: Chronic Assessment and plan: Assessment: Right foot DFU plantar under 5 th toe MPJ IS responding to conservative wound care. Acute inflammatory changes has resolved. Patient NOW needs continuation of his on going wound care and may be discharged home or [facility] on PO antibiotics. He will have to continue out patient wound care clinic follow up. We will refer him to [facility], [place], [place]. Plan: Customer Services Manager to initiate D/C planning. Current Visit: No - Time Spent With Patient Total time spent is greater than 50% in coordination of care (as documented) at patient's floor/unit and/or counseling patient: Assessment: CSSSI , DFU [place] 3 Right leg 5 th toe base, ( NO osteo ) with necrotizing infection treated with limited debridement, IV antibiotics, HBOT Patient declined ongoing HBOT. Wants to be D/C to Rehab facility ( [facility] ) in [place], [place] to be with his , who is there. Plan: OK for discharge from wound care point of view with ongoing local wound care and PO antibiotics. F/U at wound care center in ONE week. less than 15 minutes
[2017-12-09] MEDS ORDERED: ERGOCALCIFEROL (VITAMIN D2) 50,000 UNIT CAPSULE PO SCH (09:00)
== END 2017-11-20 12:13 | DRG 638 ==
LOC: MEDSUR 14:08
PROVIDERS: ADMIT Internal Medicine; ATTEND Internal Medicine